=== PATIENT | female | born 1955 | race Caucasian/White ===

== ENCOUNTER 2021-05-02 13:06 | Emergency (ER) | payer OTHER, BC, MEDICARE ==
[2021-05-02] MEDS ORDERED: Lidocaine 1% w/Epinephrine 1:100K 20 ML VIAL ONE (13:59)
[2021-05-02] MEDS ORDERED: Boostrix 0.5 ML (Tdap) VIAL ONE (15:32)
== END 2021-05-02 16:15 | disposition home or self-care (01) ==
LOC: CSHERS 13:06
DX: S01.111A Laceration without foreign body of right eyelid and periocular area, initial encounter (principal); E03.9 Hypothyroidism, unspecified; K21.9 Gastro-esophageal reflux disease without esophagitis; Z23 Encounter for immunization; Z79.899 Other long term (current) drug therapy; W01.10XA Fall on same level from slipping, tripping and stumbling with subsequent striking against unspecified object, initial encounter
CPT/HCPCS: 12011; 70450; 72125; 90471; 90715

== ENCOUNTER 2021-05-13 08:33 | Outpatient (CLI) | payer BC | END 2021-05-13 08:34 | disposition home or self-care (01) | LOC: CSHMAMMO 08:33 | PROVIDERS: ATTEND Obstetrics & Gynecology | DX: Z12.31 Encounter for screening mammogram for malignant neoplasm of breast (principal) | CPT/HCPCS: 77063; 77067 ==

== ENCOUNTER 2022-05-02 14:26 | Outpatient (CLI) | payer MEDICARE, BC | END 2022-05-02 14:27 | disposition home or self-care (01) | LOC: CSHMRI 14:26 | PROVIDERS: ATTEND Neurological Surgery | DX: M50.30 Other cervical disc degeneration, unspecified cervical region (principal); M47.812 Spondylosis without myelopathy or radiculopathy, cervical region | CPT/HCPCS: 72141 ==

== ENCOUNTER 2022-05-17 09:57 | Outpatient (CLI) | payer MEDICARE, BC | END 2022-05-17 09:58 | disposition home or self-care (01) | LOC: CSHMAMMO 09:57 | PROVIDERS: ATTEND Obstetrics & Gynecology | DX: Z12.31 Encounter for screening mammogram for malignant neoplasm of breast (principal) | CPT/HCPCS: 77063; 77067 ==

== ENCOUNTER 2023-03-07 09:23 | Outpatient (CLI) | payer MEDICARE, BC | END 2023-03-07 09:24 | disposition home or self-care (01) | LOC: CSHRAD 09:23 | PROVIDERS: ATTEND Family Medicine Sports Medicine | DX: R06.00 Dyspnea, unspecified (principal) | CPT/HCPCS: 71046 ==

== ENCOUNTER 2023-04-04 08:05 | Outpatient (CLI) | payer MEDICARE, BC | END 2023-04-04 08:06 | disposition home or self-care (01) | LOC: CSHCP 08:05 | PROVIDERS: ATTEND Family Medicine Sports Medicine | DX: R06.00 Dyspnea, unspecified (principal) | CPT/HCPCS: 94060; 94726; 94729; 94760 ==

== ENCOUNTER 2023-06-01 10:38 | Outpatient (CLI) | payer MEDICARE, BC | END 2023-06-01 10:39 | disposition home or self-care (01) | LOC: CSHMAMMO 10:38 | PROVIDERS: ATTEND Obstetrics & Gynecology | DX: Z12.31 Encounter for screening mammogram for malignant neoplasm of breast (principal); Z13.820 Encounter for screening for osteoporosis; Z78.0 Asymptomatic menopausal state | CPT/HCPCS: 77063; 77067; 77080 ==

== ENCOUNTER 2024-07-02 09:21 | Outpatient (CLI) | payer MEDICARE | END 2024-07-02 09:22 | disposition home or self-care (01) | LOC: CSHMAMMO 09:21 | PROVIDERS: ATTEND Obstetrics & Gynecology | DX: Z12.31 Encounter for screening mammogram for malignant neoplasm of breast (principal) | CPT/HCPCS: 77063; 77067 ==